=== PATIENT | male | born 1990 | race Asian ===

== ENCOUNTER 2020-07-10 23:04 | Emergency (ER) | payer OTHER, SELFPAY ==
[2020-01-09 17:18] VITALS: BMI 21.7
[2020-07-10 23:05] VITALS: BP 146/90; PULSE 74; RESP 16; TEMP 36.4; O2SAT 97; BMI 22.5
--- NOTE | 2020-07-10 23:24 | ED.DCSUM_ITS ---
History of Present Illness Chief Complaint: Abd Pain Informant: Patient - Abdominal Pain/Flank Pain Onset: Today, Hours - 7-8 Context: Gradual Onset Timing: Intermittent, Lasts - seconds Quality: Sharp Location: - - infraumbilical. nonradiating. Current Severity: Gone Maximum Severity: Moderate Worsened by: Food - after dinner, seemed worse Relieved by: Nothing - Nausea/Vomiting/Emesis GI Symptom: Negative for: Nausea, Vomiting - Diarrhea/Melena/Hematochezia GI Symptom: Melena. Negative for: Diarrhea, Hematochezia Onset: Today Stool Quality: Black Severity: Mild Associated Symptoms: Negative for: Dysuria, Frequency, Hematuria, Urgency Narrative: Patient states he started getting periumbilical abdominal discomfort earlier today and then afterwards noticed a black stool and was concerned maybe he was bleeding. He states he had peptic ulcer disease in the past, and no longer takes the medication for it that he was on before, and takes no medications. He has had no nausea, vomiting/hematemesis. He felt lightheaded today but did not feel near syncopal necessarily. No recent illnesses otherwise no other symptoms. Recent Illness/Hospitalization: No - Past Medical History (1) PUD (peptic ulcer disease) Status: Suspected Past Medical History - Allergies and Home Meds Allergies/Adverse Reactions: Allergies No Known Allergies Allergy (Verified 07/10/20 23:10) Primary Care Physician: NOT,DEFINED [NON-STAFF] - Alcohol: None Drugs: None Review of Systems General: Reports: Malaise - and lightheaded. Denies: Chills, Fever, Sweats Eyes: Denies: Visual changes - bilaterally, Diplopia ENT: Denies: Bilateral ear pain, Rhinorrhea, Sore throat Cardiovascular: Denies: Chest pain, Palpitations Respiratory: Denies: Dyspnea, Cough, Dyspnea on exertion Gastrointestinal: Reports: Abdominal pain, Melena - see HPI. Denies: Nausea, Vomiting, Diarrhea, Hematochezia Genitourinary: Denies: Dysuria, Hematuria, Frequency Musculoskeletal: Denies: Neck pain, Back pain, Swelling, Extremity Pain Skin: Denies: Rash, Wounds Neurological: Denies: Headache, Weakness, Numbness Physical Exam Vital Signs/Narrative: Vital Signs Temp Pulse Resp BP Pulse Ox 07/10/20 23:05 97.6 F L 74 16 146/90 H 97 Inital Vital Signs reviewed: Yes General: Well nourished, Well developed, No Acute Distress - Well-appearing, no distress. Not tachycardic. Head: Normocephalic, Atraumatic Eyes: Perrl, EOMI ENT: Moist mucous membranes, No rhinorrhea Neck: Supple, Nontender Cardiovascular: Regular rate, Regular rhythm, No murmurs. Negative for: Tachycardia Respiratory: No distress, CTA bilaterally, Chest nontender Abdomen: Soft, Nontender, Nondistended, Normal bowel sounds Back: Nontender, Normal Inspection. Negative for: CVA tenderness Extremities: Nontender, No edema Skin: Normal color, No rash, No Trauma Neurological: Alert, Oriented x3, Cranial nerves II-XII grossly intact, Normal Strength, Normal Sensation, Normal Gait Psychological: Normal affect, Normal Mood Diagnostic/Tx/Re-eval Laboratory Tests 07/10/20 07/10/20 Range/Units 23:40 23:40 WBC 7.3 (4.4-11.0) K/mm3 RBC 5.08 (4.6-6.2) M/mm3 Hgb 15.2 (13.0-16.5) g/dL Hct 46.3 (40-54) % MCV 91.1 (80-94) fL MCH 29.9 (27.0-32.0) pg MCHC 32.8 (32-36) g/dL RDW Std Deviation 41.2 (35.1-43.9) fl RDW Coeff of Jeremy 12.2 (11.6-14.6) % Plt Count 261 (150-450) K/mm3 MPV 9.7 (6.2-12.0) fl Immature Gran % (Auto) 1.000 H (0.0-0.9) % Neut % (Auto) 61.5 (47-70) % Lymph % (Auto) 26.7 (19-41) % [place] % (Auto) 7.9 (0-10) % Eos % (Auto) 2.5 (0-5) % Baso % (Auto) 0.4 (0-1) % Absolute Neuts (auto) 4.5 (2.0-7.7) X10^3/uL Absolute Lymphs (auto) 1.96 (0.83-4.51) X10^3/uL Nucleated RBC % 0 (0-5) % Sodium 139 (136-145) mmol/L Potassium 4.0 (3.5-5.1) mmol/L Chloride 107 (98-107) mmol/L Carbon Dioxide 26.0 (21.0-32.0) mmol/L Anion Gap 6 (5-15) BUN 8 (7-18) mg/dL Creatinine 0.97 (0.70-1.30) mg/dL Estim Creat Clear Calc 103.63 ml/min Est GFR (MDRD) Af Amer 117 (>60) mL/min Est GFR (MDRD) Non-Af 97 (>60) mL/min BUN/Creatinine Ratio 8.2 L (10-20) RATIO Glucose 144 H (74-106) mg/dL Calcium 8.8 (8.5-10.1) mg/dL - Medical Decision Making Vital signs and labs are normal, as above. There is no elevated BUN to suggest an upper GI bleed. Patient declined rectal exam to test his stool and did not have a bowel movement here. He was given Protonix and Bentyl here as well as prescriptions and advised to follow-up, given a PCP since he does not have one. ED Disposition - Plan for ED Patient: Disposition: Home or Assisted Living Diagnosis: Periumbilical abdominal pain Instructions: ED PEPTIC ULCER vs GASTRITIS Prescriptions: Dicyclomine HCl [Bentyl] 20 mg PO Q6H PRN #20 cap PRN Reason: abdominal pain Transmission Status: Pending to [id number] Pantoprazole Sodium [Protonix] 40 mg PO DAILY #30 tab Transmission Status: Pending to [id number] Referrals: Prabha Porras DO [STAFF PHYSICIAN] - 1-2 Weeks
[2020-07-10 23:36] VITALS: BP 130/91; BP 133/83; BP 133/93; PULSE 75; PULSE 76; PULSE 85
[2020-07-10] MEDS: Pantoprazole Sodium 40 MG Tablet PO (23:38)
[2020-07-10] MEDS: Dicyclomine 10 MG Capsule 20 MG PO (23:38)
[2020-07-11 00:06] LABS: Absolute Lymphocyte Count 1.96 X10^3/uL (0.83-4.51); Absolute Neutrophil Count 4.5 X10^3/uL (2.0-7.7); Basophil# 0.03 X10^3/uL; Basophil% 0.4 % (0-1); Eosinophil# 0.18 X10^3/uL; Eosinophils% 2.5 % (0-5); Hematocrit 46.3 % (40-54); Hemoglobin 15.2 g/dL (13.0-16.5); Lymphocyte # 1.96 X10^3/ul (4.0); Lymphocyte % 26.7 % (19-41); Mean Corp Hgb Conc 32.8 g/dL (32-36); Mean Corpuscular Hgb 29.9 pg (27.0-32.0); Mean Corpuscular Volume 91.1 fL (80-94); Mean Platelet Vol. 9.7 fl (6.2-12.0); Monocyte# 0.58 X10^3/uL; Monocyte% 7.9 % (0-10); NRBC Flagged by Analyzer 0 % (0-5); Neutrophil # 4.51 X10^3/uL (2.7-7.7); Neutrophil % 61.5 % (47-70); Platelet Count 261 K/mm3 (150-450); RBC Distribution Width CV 12.2 % (11.6-14.6); RBC Distribution Width SD 41.2 fl (35.1-43.9); Red Blood Count 5.08 M/mm3 (4.6-6.2); White Blood Count 7.3 K/mm3 (4.4-11.0)
[2020-07-11 00:11] LABS: Anion Gap 6 (5-15); BUN 8 mg/dL (7-18); BUN/Creat Ratio 8.2 RATIO (10-20); Calcium,Total 8.8 mg/dL (8.5-10.1); Chloride 107 mmol/L (98-107); Creatinine, Serum 0.97 mg/dL (0.70-1.30); EST Glomerular Filtration Rate 97 mL/min (>60); Est Glom Filt Rate - Afr Amer 117 mL/min (>60); Estimated Creatinine Clearance 103.63 ml/min; Glucose 144 mg/dL (74-106); Sodium Level 139 mmol/L (136-145)
== END 2020-07-11 00:26 | disposition home or self-care (01) ==
PROVIDERS: Emergency Provider Emergency Medicine
DX: R10.33 Periumbilical pain (principal)
CPT/HCPCS: 80048; 85025; 99285; A4216